=== PATIENT | male | born 1990 | race Caucasian/White ===

== ENCOUNTER 2019-11-23 13:26 | Inpatient (IN) ==
[2019-11-23 14:09] LABS: Bilirubin,Urine Negative (Negative); Blood,Urine Negative (Negative); Clarity,Urine Clear (Clear); Color,Urine Yellow (Yellow); Glucose,Urine (UA) Normal (Normal); Ketones,Urine Negative (Negative); Leukocyte Esterase,Urine Negative (Negative); Nitrite,Urine Negative (Negative); Protein,Urine Negative (Neg-Trace); Specific Gravity,Urine 1.006 (1.010-1.025); Urobilinogen,Urine Normal (Normal)
[2019-11-23 14:09] LABS: Basophils % 0.3 %; Eosinophils % 0.5 %; Hematocrit 42.6 % (37.5-50.1); Hemoglobin 15.3 g/dL (12.9-16.9); Immature Granulocytes % 0.2 % (0-4); Lymphocytes # 1.9 K/mcL (0.6-4.6); Lymphocytes % 29.5 %; Mean Corpuscular HGB Conc 35.9 g/dL (31.6-35.5); Mean Corpuscular Hemoglobin 29.7 pg (28.0-33.3); Mean Corpuscular Volume 82.6 fL (83.0-100.0); Mean Platelet Volume 8.5 fL (9.4-12.4); Monocytes # 0.5 K/mcL (0.0-1.3); Monocytes % 7.2 %; Neutrophils # 3.9 K/mcL (1.6-8.9); Platelet Count 208 K/mcL (140-400); Red Blood Count 5.16 M/mcL (4.19-5.50); Red Cell Distribution Width 13.3 % (11.5-14.5); Segmented Neutrophils % 62.3 %; White Blood Count 6.3 K/mcL (4.3-11.1)
[2019-11-23 14:21] LABS: Amphetamine Screen,Urine Negative ng/mL (Cutoff=1000); Barbiturate Screen,Urine Negative ng/mL (Cutoff=200); Benzodiazepines Screen,Urine Negative ng/mL (Cutoff=200); Cannabinoid Screen,Urine Negative ng/mL (Cutoff = 50); Cocaine Screen,Urine Negative ng/mL (Cutoff= 300); Opiate Screen,Urine Negative ng/mL (Cutoff=300); Phencyclidine Screen,Urine Negative ng/mL (Cutoff=25)
[2019-11-23 14:29] LABS: Acetaminophen < 10 mcg/mL (10-20); BUN/Creatinine Ratio 7 (6-26); Blood Urea Nitrogen 6 mg/dL (6-20); Calcium 9.9 mg/dL (8.6-10.3); Carbon Dioxide 24 mEq/L (23-29); Chloride 103 mEq/L (98-107); Ethanol 152 mg/dL (Less than 10); Glucose 100 mg/dL (70-105); Osmolality,Calculated 280 (280-300); Potassium 3.9 mEq/L (3.5-5.1); Salicylate < 2.5 mg/dL (15.0-30.0); Sodium 136 mEq/L (136-145); eGFR For African Americans > 60 (> 60); eGFR For Non-African Americans > 60 (> 60)
[2019-11-23] MEDS ORDERED: hydrOXYzine pamoate 25 MG CAPSULE PO ONE (19:15)
[2019-11-23] MEDS ORDERED: Haloperidol Lactate 5 MG/ML VIAL IM PRN (19:46)
[2019-11-23] MEDS ORDERED: Nicotine 2 MG GUM BC PRN (19:46)
[2019-11-23] MEDS ORDERED: Mag Hydrox/Al Hydrox/Simeth 30 ML UDC PO PRN (19:46)
[2019-11-23] MEDS ORDERED: MOM Conc 10 ML UD.LIQ PO PRN (19:46)
[2019-11-23] MEDS ORDERED: *HR* LORazepam 1 MG TABLET PO PRN (19:46)
[2019-11-23] MEDS ORDERED: Acetaminophen 325 MG TABLET PO PRN (19:46)
[2019-11-23] MEDS ORDERED: haloperidoL 5 MG TABLET PO PRN (19:46)
[2019-11-23] MEDS ORDERED: *HR* LORazepam 2 MG/ML VIAL IM PRN (19:46)
[2019-11-23] MEDS: hydrOXYzine pamoate 25 MG CAPSULE PO PRN (20:43)
[2019-11-23] MEDS: traZODone 50 MG TABLET PO PRN (20:43)
[2019-11-23] MEDS ORDERED: ARIPiprazole 5 MG TABLET PO SCH (21:00)
[2019-11-24] MEDS: Folic Acid 1 MG TABLET PO SCH (09:09)
[2019-11-24] MEDS: Vitamin B Complex/Vit C/Vit E 1 EACH TABLET PO SCH (09:09)
[2019-11-24] MEDS: Nicotine 21 MG PATCH.TD24 TD SCH (09:09)
[2019-11-24] MEDS: Thiamine (B-1) 100 MG TABLET PO SCH (09:09)
[2019-11-24] MEDS: hydrOXYzine pamoate 25 MG CAPSULE PO PRN (16:03)
[2019-11-24] MEDS ORDERED: ARIPiprazole 10 MG TABLET PO SCH (21:00)
[2019-11-24] MEDS: traZODone 50 MG TABLET PO PRN (21:48)
[2019-11-25] MEDS: Vitamin B Complex/Vit C/Vit E 1 EACH TABLET PO SCH (08:39)
[2019-11-25] MEDS: Folic Acid 1 MG TABLET PO SCH (08:39)
[2019-11-25] MEDS: Nicotine 21 MG PATCH.TD24 TD SCH (08:39)
[2019-11-25] MEDS: Thiamine (B-1) 100 MG TABLET PO SCH (08:40)
[2019-11-25] MEDS: ARIPiprazole 10 MG TABLET PO SCH (10:08)
[2019-11-25] MEDS: traZODone 50 MG TABLET PO PRN (21:40)
[2019-11-26] MEDS: Vitamin B Complex/Vit C/Vit E 1 EACH TABLET PO SCH (08:54)
[2019-11-26] MEDS: ARIPiprazole 10 MG TABLET PO SCH (08:54)
[2019-11-26] MEDS: Thiamine (B-1) 100 MG TABLET PO SCH (08:54)
[2019-11-26] MEDS: Nicotine 21 MG PATCH.TD24 TD SCH (08:54)
[2019-11-26] MEDS: Folic Acid 1 MG TABLET PO SCH (08:54)
[2019-11-26] MEDS: hydrOXYzine pamoate 25 MG CAPSULE PO PRN (10:10)
[2019-11-26 10:37] VITALS: BP 101/65
== END 2019-11-26 10:55 | disposition home or self-care (01) | DRG 750 ==
LOC: EMEROOARM 13:26 → 1ANU 19:18
PROVIDERS: ADMIT Psychiatry & Neurology Psychiatry; ATTEND Psychiatry & Neurology Psychiatry